=== PATIENT | female | born 1975 | race Caucasian/White ===

== ENCOUNTER 2021-02-19 07:36 | Outpatient (REF) | payer OTHER, SELFPAY | END 2021-02-19 07:37 | disposition home or self-care (01) | LOC: HO.HOSX 07:36 | PROVIDERS: Visit Provider Physician Assistant | DX: Z13.89 Encounter for screening for other disorder (principal) ==

== ENCOUNTER 2022-07-23 10:44 | Outpatient (REF) | payer MEDICARE, SELFPAY ==
--- NOTE | ~2022-07-23 | CT_ITS ---
EXAMINATION: CT SCAN OF THE TEMPORAL BONES CLINICAL INFORMATION: Right semicircular canal dehiscence COMPARISON: None. TECHNIQUE: Multidetector helical imaging was performed in the axial plane with generation of oblique axial and coronal reformatted projections. This CT examination was performed using dose optimization techniques as appropriate, variously including the following: *Automated exposure control *Adjustment of mA and/or kV according to patient size (this includes techniques or standardized protocols for targeted exams where dose is matched to indication/reason for exam; i.e. extremities or head) *Use of iterative reconstruction technique DLP: 156 mGy-cm. FINDINGS: -- Left Temporal Bone -- The periauricular soft tissues are unremarkable. The external auditory canal is clear. The tympanic membrane is intact without thickening. The scutum is normal. The middle ear cleft is clear. The ossicles are normal without erosive change. The round and oval windows are normal. There is normal mineralization of the otic capsule. The tegmen tympani and tegmen mastoideum are intact. Trace mastoid effusion. The cochlea, vestibule, and semicircular canals are normal. The vestibular aqueduct is normal. The bony internal auditory canal is normal. The facial nerve course is normal. -- Right Temporal Bone -- The periauricular soft tissues are unremarkable. The external auditory canal is clear. The tympanic membrane is intact without thickening. The scutum is normal. The middle ear cleft is clear. The ossicles are normal without erosive change. The round and oval windows are normal. There is normal mineralization of the otic capsule. The tegmen tympani and tegmen mastoideum are intact. The mastoid air cells are clear. The cochlea, vestibule, and semicircular canals are normal. The vestibular aqueduct is normal. The bony internal auditory canal is normal. The facial nerve course is normal. -- Other Findings -- Left palatine tonsilloliths. The bilateral carotid canals and jugular foramina are normal. The visualized paranasal sinuses are well aerated with a thin septation traversing the right maxillary antrum.. The orbits are unremarkable. The visualized intracranial structures are normal. 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 CT/CT internal auditory canals BI IMPRESSION: Normal temporal bone study, apart from a trace left mastoid effusion. No evidence of right semicircular canal dehiscence, as clinically queried.
== END 2022-07-23 10:45 | disposition home or self-care (01) ==
LOC: HO.CT 10:44
PROVIDERS: PCP Family Medicine; Visit Provider Otolaryngology
DX: H83.8X1 Other specified diseases of right inner ear (principal)
CPT/HCPCS: 70480